=== PATIENT | female | born 1940 | race Caucasian/White ===

== ENCOUNTER 2021-05-07 08:00 | Outpatient (RCR) | payer MEDICARE, SELFPAY | END 2021-05-21 15:16 | disposition home or self-care (01) | LOC: HO.WCC 08:00 | PROVIDERS: Visit Provider Physician Assistant | DX: Z09 Encounter for follow-up examination after completed treatment for conditions other than malignant neoplasm (principal); I10 Essential (primary) hypertension; Z87.2 Personal history of diseases of the skin and subcutaneous tissue | CPT/HCPCS: 11042; 99212 ==